=== PATIENT | male | born 1960 | race Caucasian/White ===

== ENCOUNTER 2024-10-25 07:09 | Observation (INO) | payer OTHER ==
[2024-10-25 07:55] VITALS: BMI 25.4
[2024-10-25] MEDS ORDERED: Acetaminophen 325 MG TAB PO PRN (08:19)
[2024-10-25] MEDS ORDERED: HYDROcodone/Acetaminophen 5/325 mg Tablet PO PRN (08:35)
[2024-10-25] MEDS ORDERED: hydrALAZINE 20 MG/ML VIAL SLOW IVP PRN (08:35)
[2024-10-25] MEDS ORDERED: Diazepam 5 MG TAB PO PRN (09:19)
[2024-10-25] MEDS ORDERED: lamoTRIgine 100 MG TAB PO SCH (09:19)
[2024-10-25] MEDS: Gabapentin 300 MG CAP PO SCH (09:56)
[2024-10-25] MEDS: lamoTRIgine 100 MG TAB PO SCH (09:57)
[2024-10-25] MEDS: Amlodipine 5 MG TAB PO SCH (09:57)
[2024-10-25] MEDS: Rosuvastatin 10 MG TAB PO SCH (09:57)
[2024-10-25] MEDS: Lisinopril 20 MG TAB PO SCH (09:58)
[2024-10-25] MEDS: Sodium Chloride 0.9% 1,000 ML IV SCH ×2 (09:58→11:41)
[2024-10-25] MEDS: Enoxaparin 40 MG (0.4 mL) SYRINGE SC SCH (09:58)
[2024-10-25] MEDS: FLU (Fluarix Triv) TS24-25(6MOS UP)/PF 45 MCG/0.5 ML Syringe IM ONE (11:03)
[2024-10-25 11:51] VITALS: TEMP 97.3
[2024-10-25 11:55] VITALS: BP 116/76
[2024-10-25] MEDS ORDERED: Zolpidem Tartrate 5 MG TAB PO SCH (21:00)
[2024-10-26] MEDS ORDERED: lamoTRIgine 100 MG TAB PO SCH (09:00)
[2024-10-26] MEDS ORDERED: Rosuvastatin 10 MG TAB PO SCH (09:00)
[2024-10-26] MEDS ORDERED: Enoxaparin 40 MG (0.4 mL) SYRINGE SC SCH (09:00)
[2024-10-26] MEDS ORDERED: Lisinopril 20 MG TAB PO SCH (09:00)
== END 2024-10-25 15:15 | disposition home or self-care (01) ==
LOC: 2NO 07:09
PROVIDERS: ADMIT Internal Medicine; ATTEND Internal Medicine
DX: I10 Essential (primary) hypertension (principal); I48.91 Unspecified atrial fibrillation; E78.5 Hyperlipidemia, unspecified; I25.2 Old myocardial infarction; E83.52 Hypercalcemia; M50.321 Other cervical disc degeneration at C4-C5 level; M50.322 Other cervical disc degeneration at C5-C6 level; Z98.890 Other specified postprocedural states; Z79.01 Long term (current) use of anticoagulants
CPT/HCPCS: 36415; 80053; 82306; 82652; 83970; 84439; 84484; 85025; 93005; J1650; J7030